=== PATIENT | male | born 1995 | race Two or more races ===

== ENCOUNTER 2016-11-25 01:38 | Emergency (ER) | payer OTHER ==
[2016-11-25 01:44] VITALS: BP 162/72; PULSE 79; RESP 16; TEMP 98.2; O2SAT 98
--- NOTE | 2016-11-25 02:30 | EDPHY ---
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 Patient unclear exactly what this is. States he just noticed it prior to arrival. He has no pain. No swelling, no tongue swelling no trouble swallowing no fever. No injury. Denies biting his cheek. Past Medical History: No medical history Past Surgical History: No surgical history Social History: Denies daily use drugs alcohol tobacco products Family History: Noncontributory ROS REVIEW OF SYSTEMS: A comprehensive 10 point review of systems is otherwise negative aside from elements mentioned in the history of present illness. Exam Constitutional triage nursing summary reviewed, vital signs reviewed, awake/ alert. Eyes normal conjunctivae and sclera, EOMI, PERRLA. HENT intra-orally: Left upper cheek there is a gland secretory gland that appears to be swollen, also white lesions the inner cheek maybe an ulcer, otherwise unremarkable oropharynx exam normal inspection, atraumatic, moist mucus membranes, no epistaxis, neck supple/ no meningismus, no raccoon eyes. Respiratory clear to auscultation bilaterally, normal breath sounds, no respiratory distress, no wheezing. Cardiovascular rate normal, regular rhythm, no murmur, no edema, distal pulses normal. Gastrointestinal soft, non-tender, no rebound, no guarding, normal bowel sounds, no distension, no pulsatile mass. Genitourinary no CVA tenderness. Musculoskeletal no midline vertebral tenderness, full range of motion, no calf swelling, no tenderness of extremities, no meningismus, good pulses, neurovascularly intact. Skin pink, warm, & dry, no rash, skin atraumatic. Neurologic awake, alert and oriented x 3, AAOx3, moves all 4 extremities equally, motor intact, sensory intact, CN II-XII intact, normal cerebellar, normal vision, normal speech. Psychiatric normal mood/affect. Heme/Lymph/Immune no lymphadenopathy. Differential Diagnosis: cheek ulcer, abscess ulcer, salivary gland obstruction Medical Decision Making: plan for this patient is to suck on lemon drops, and mouth rinse. He understands if he has worsening swelling, pain, fever, drainage to return to the emergency room. Source: Patient - Personal History Current Tetanus/Diphtheria Vaccine: No Current Tetanus Diphtheria and Acellular Pertussis (TDAP): No - Medical/Surgical History Hx Asthma: No Hx Chronic Respiratory Disease: No Hx Diabetes: No Hx Cardiac Disease: No Hx Renal Disease: No Hx Cirrhosis: No Hx Alcoholism: No Hx HIV/AIDS: No Hx Splenectomy or Spleen Trauma: No - Social History Smoking Status: Never smoked Constitutional: Initial Vital Signs Temperature (C) 36.8 C 11/25/16 01:42 Heart Rate 79 11/25/16 01:42 Respiratory Rate 16 11/25/16 01:42 Blood Pressure 162/72 H 11/25/16 01:42 O2 Sat (%) 98 11/25/16 01:42 O2 Delivery Mode Room Air Allergies/Adverse Reactions: No Known Allergies Allergy (Verified 11/25/16 01:45) Home Medications: Medication Instructions Recorded Chlorhexidine Gluconate [Perisol] 437 ml MM BID #1 mouthwash 11/25/16 Departure - Departure Disposition: Home, Routine, Self-Care Clinical Impression: Aphthous ulcer, Salivary gland swelling Condition: Good Instructions: Sialorrhea (ED), Sialoadenitis (ED) Additional Instructions: 1. Suck on lemon drops. 2. Magic mouthwash. 3. return emergency room if worsening pain, swelling or fever. Referrals: NONE *PRIMARY CARE P,. [Primary Care Provider] - As per Instructions Prescriptions: Chlorhexidine Gluconate [Perisol] 437 ml MM BID #1 mouthwash
== END 2016-11-25 02:33 | disposition home or self-care (01) ==
DX: K12.0 Recurrent oral aphthae (principal); K11.8 Other diseases of salivary glands